=== PATIENT | female | born 1970 | race Two or more races ===

== ENCOUNTER → 2024-07-02 | Outpatient (CLI) | payer MEDICARE, MEDICAID, SELFPAY ==
--- NOTE | 2024-07-02 13:12 | XR_ITS ---
Examination: Left knee 2 views Technique one AP lateral left knee 2 views Exam date and time: July 02, 2024 1502 hours INDICATIONS: Left knee pain beginning 3 weeks ago. FINDINGS: Minimal narrowing medial joint space Early osteoarthritis patellofemoral joint Small knee effusion No fracture IMPRESSION: Mild osteoarthritis
--- NOTE | 2024-07-02 13:12 | XR_ITS ---
EXAMINATION: Ankle, left 3 views . Technique: Ankle AP, oblique, lateral 3 views Date and time of exam: July 02, 2024 1448 hours INDICATIONS: Left ankle pain beginning 3 weeks ago. FINDINGS: Moderate osteopenia Early osteoarthritis tibiotalar joint 4 mm posterior bony calcaneal spur No fracture IMPRESSION: Early osteoarthritis tibiotalar joint
== END | disposition home or self-care (01) ==
PROVIDERS: PCP Nurse Practitioner Family; Referring Provider Nurse Practitioner Family; Visit Provider Nurse Practitioner Family
DX: M19.072 Primary osteoarthritis, left ankle and foot (principal); M17.12 Unilateral primary osteoarthritis, left knee
CPT/HCPCS: 73560; 73610

== ENCOUNTER 2025-02-27 03:54 | Emergency (ER) | payer MEDICARE, MEDICAID, SELFPAY ==
[2025-02-27 03:54] VITALS: BMI 46.6
--- NOTE | 2025-02-27 04:07 | PD.EDURI ---
Upper Respiratory Inf. RME/HPI General Chief Complaint: Flu Like Symptoms Stated Complaint: COUGH Time Seen by Provider: 02/27/25 04:04 Arrival date/time: 02/27/25 03:54 RME / HPI RME / HPI Narrative: This section includes all my notes and documentations, including HPI, PE, and ED course. Fabiano Haynes MD HPI: 54 y/o female with a couple day history of cough and congestion and scratchy throat. No fever. No other complaints. ROS: All negative except as documented in HPI. Physical Exam: General: Alert and oriented. Mild cough noted. Eyes: Conjunctivae and lids clear. ENT: No nasal congestion. Neck: Supple. Heart: RRR. Lungs: No respiratory distress. Good air movement. No rhonchi, wheezing, rales. Abdomen: Soft and nontender. Skin: Warm and dry. Neuro: Alert and oriented X 3. I reviewed all diagnostic test results: Covid/Influenza: Negative. Strep: Negative. At this point, diagnoses include: URI. Treatment here included: Prednisone 40 mg Recommended supportive care. Based on my best medical judgment, made decision no further evaluation or treatment indicated at this time. Patient understands and agrees to the discharge instructions customized and printed, see below. Discharge Instructions from Dr. Haynes: 1. The tests today for COVID and influenza and strep were negative.? 2. We don't have a way to test for all the bugs out there.? But most are virus bugs and we don't have good medications to kill them.? But your immune system will fight off the infection. 3. Tylenol and ibuprofen for fever or pain. 4. Benadryl as needed for severe cough or congestion. 5. Increase oral fluid.? The immune system needs extra when sick. 6. See a private doctor next week if not completely better. 7. Seek immediate medical care with worsening or with any concerns. Fabiano Haynes MD Related Data Home Medications ?Medication ?Instructions ?Recorded ?Confirmed benazepril 20 mg tablet (Lotensin) 40 mg PO DAILY High Blood Pressure 11/23/13 04/21/22 #1 tab esomeprazole magnesium 20 mg 20 mg PO QDAY 10/08/18 04/21/22 capsule,delayed release (Nexium) omeprazole 40 mg capsule,delayed 40 mg PO QDAY 10/08/18 04/21/22 release benazepril 20 mg tablet 1 tab PO QDAY 11/23/18 04/21/22 cyclobenzaprine 10 mg tablet 1 tab PO QDAY 11/23/18 04/21/22 hydrocodone 5 mg-acetaminophen 325 1 tab PO Q6HR PRN Pain 11/23/18 04/21/22 mg tablet cetirizine 10 mg tablet 10 mg PO QDAY 11/26/18 04/21/22 cyclobenzaprine 10 mg tablet 10 mg PO TID 11/26/18 04/21/22 Previous Rx's ?Medication ?Instructions ?Recorded carisoprodol 250 mg tablet 250 mg PO TID PRN muscle pain #20 06/16/19 tabs acetaminophen 500 mg capsule 1,000 mg (2 x 500 mg) PO Q8HR PRN 02/05/20 pain #60 caps cyclobenzaprine 10 mg tablet 10 mg PO TID PRN muscle spasm #30 02/05/20 tabs acetaminophen 300 mg-codeine 30 mg 1 tab PO Q6H PRN pain #10 tabs 08/19/20 tablet naproxen 500 mg tablet (Naprosyn) 500 mg PO BID PRN pain #30 tabs 08/19/20 hydrocodone 5 mg-acetaminophen 325 1 tab PO BID PRN pain #14 tabs 09/11/20 mg tablet ([place]) metoclopramide HCl 10 mg tablet 10 mg PO Q6H PRN nausea and 09/11/20 (Reglan) vomiting #20 tabs naproxen 500 mg tablet (Naprosyn) 500 mg PO BID PRN pain #30 tabs 01/29/21 phenazopyridine 200 mg tablet 200 mg PO TID 6 doses #6 tabs 01/29/21 (Pyridium) albuterol sulfate 90 mcg/actuation 2 puff inhalation Q6H PRN 08/28/21 aerosol inhaler (Ventolin HFA) shortness of breath or wheezing #8.5 grams dextromethorphan HBr 15 mg/5 mL 15 mg (5 mL) PO Q8H #118 mL 08/28/21 oral liquid (Tussin Cough (DM only)) naproxen 500 mg tablet (Naprosyn) 500 mg PO BID PRN pain #20 tabs 09/07/21 tramadol 50 mg tablet 50 mg PO BID PRN pain #14 tabs 09/07/21 ibuprofen 800 mg tablet 800 mg PO TID PRN pain #30 tabs 03/25/22 benzocaine 15 mg-menthol 3.6 mg 1 lyndon mucous membrane Q2H PRN sore 04/21/22 lozenges (Cepacol Sore Throat throat #16 ea (benzocaine-menthol)) benzonatate 200 mg capsule 200 mg PO TID PRN cough #20 caps 07/05/22 Allergies Allergy/AdvReac Type Severity Reaction Status Date / Time topiramate (From Topamax) Allergy Abdominal Verified 02/27/25 03:58 Pain Review of Systems Review of Systems Systems Reviewed: All systems reviewed, normal except as documented Past Medical History Past Medical History CARDIAC: Positive Hypertension RESPIRATORY: Positive Asthma GASTROINTESTINAL: Positive Gastrointestinal Disorders, Gall Bladder Disease, Hemorrhoids, Gastroesophageal Reflux Disease and Obesity REPRODUCTIVE: Positive Previous Pregnancies MUSCULOSKELETAL: Positive Musculoskeletal Disorders, Arthritis and Fibromyalgia PSYCHO/SOCIAL: Positive Anxiety OTHER HISTORY: Positive Chicken Pox Family History FAMILY HISTORY: Positive Family Psychiatric Problems, Family Respiratory Disorders, Family Cardiac Disorders, Family Gastrointestinal Problems and Family Surgery Surgical History SURGICAL: Positive Hysterectomy, Tubal Ligation and Section ED Exam Narrative Physical exam: Refer to HPI Course Quality Measures none Orders Category Date Time Status Bedside COVID-19 Antigen Test NOW Care 02/27/25 04:04 Completed Bedside Influenza A&B Antigen Test NOW Care 02/27/25 04:05 Completed Strep A Rapid Stat Lab 02/27/25 04:20 Completed predniSONE Med 02/27/25 04:15 Discontinued 40 mg PO X1 ONE Vital Signs Vital signs: Vital Signs Temperature 98.2 F 02/27/25 04:09 Pulse Rate 96 02/27/25 04:09 Respiratory Rate 19 02/27/25 04:09 Blood Pressure 159/102 H 02/27/25 04:09 Pulse Oximetry (%) 96 02/27/25 04:09 Oxygen Delivery Method Room Air 02/27/25 04:09 Upper Respiratory Infection MDM Narrative MDM Narrative:: Scribe Attestation: Giuliana Kaye am scribing for and in the presence of Dr. Haynes. Provider Notation: Although this document has been carefully reviewed, there may still be some phonetic and other typographical errors.? These errors are purely grammatical due to imperfections in the software program and should not be construed in any way to? compromise the substance of the patient's medical care during this visit. 54 y/o female with a couple day history of cough and congestion and scratchy throat. No fever. No other complaints Patient data External records reviewed:: [facility] previous records (No recent ED records available for review.) Clinical information provided by:: patient Social determinants that could affect healthcare access:: none Patient has the following chronic illnesses:: Hypertension, Asthma, Gall Bladder Disease, Hemorrhoids, Gastroesophageal Reflux Disease, Obesity, Arthritis, Fibromyalgia, Anxiety How is presenting disease/condition affected by chronic disease/condition?: exacerbated by Evaluation data The following diagnostics were reviewed and interpreted by me:: other (specify) (Covid/Influenza/Strep. A Rapid) Lab and/or radiology exams considered but not ordered:: None Interpretation Summary: I reviewed all diagnostic test results: Covid/Influenza: Negative. Strep: Negative. Medications / Prescriptions Medications or Prescriptions considered but not ordered:: None Medication administrations:: Medication Administration History Discontinued Medications Prednisone (Prednisone 20 Mg Tablet) 40 mg PO X1 ONE Stop: 02/27/25 04:16 Last Admin: 02/27/25 04:22 Dose: 40 mg Documented By: ZOHRA Prednisone 40 mg Consultations Consultation(s) initiated? (list below): No Diagnosis Upper Respiratory Differential Diagnosis: upper respiratory infection, viral infection, bronchitis, influenza, pharyngitis and other (COVID-19) Most likely diagnosis given after review of the tests above:: URI Admission Indicated Admission indicated?: not indicated Explain why admission is indicated or not indicated:: With no condition needing emergent intervention, there was no indication for admission. Admission Request Was there a request for admission?: No Disposition Plan Disposition Plan: Discharge Discharge Attestation Discharge Attestation: The patient and all family members were given an opportunity to ask questions and understood the discharge instructions. Discharge instructions specifically effects, indications for sooner follow up or return to the emergency department, and the expected course of current diagnosis. Patient condition: Stable Discharge Plan Plan Patient Disposition: HOME (Self Care) Prescriptions/Referrals Prescriptions/Med Rec: No Action omeprazole 40 mg capsule,delayed release(DR/EC) 40 mg PO QDAY esomeprazole magnesium [Nexium] 20 mg capsule,delayed release(DR/EC) 20 mg PO QDAY Cepacol Sore Throat (vern-men) 15-3.6 mg lozenge 1 lyndon mucous membrane Q2H PRN (Reason: sore throat) Qty: 16 0RF benazepril [Lotensin] 20 MG tablet 40 mg PO DAILY Qty: 1 carisoprodol 250 mg tablet 250 mg PO TID PRN (Reason: muscle pain) Qty: 20 0RF cyclobenzaprine 10 mg tablet 10 mg PO TID PRN (Reason: muscle spasm) Qty: 30 0RF acetaminophen 500 mg capsule 1,000 mg PO Q8HR PRN (Reason: pain) Qty: 60 0RF naproxen [Naprosyn] 500 mg tablet 500 mg PO BID PRN (Reason: pain) Qty: 30 0RF acetaminophen-codeine 300-30 mg tablet 1 tab PO Q6H PRN (Reason: pain) Qty: 10 0RF naproxen [Naprosyn] 500 mg tablet 500 mg PO BID PRN (Reason: pain) Qty: 30 0RF phenazopyridine [Pyridium] 200 mg tablet 200 mg PO TID Qty: 6 0RF albuterol sulfate [Ventolin HFA] 90 mcg/actuation HFA aerosol inhaler 2 puff inhalation Q6H PRN (Reason: shortness of breath or wheezing) Qty: 8.5 0RF Tussin Cough (DM only) 15 mg/5 mL liquid 15 mg PO Q8H Qty: 118 0RF cyclobenzaprine 10 mg Tablet 10 mg PO TID cetirizine 10 mg Tablet 10 mg PO QDAY cyclobenzaprine 10 mg tablet 1 tab PO QDAY hydrocodone-acetaminophen 5-325 mg tablet 1 tab PO Q6HR PRN (Reason: Pain) benazepril 20 mg tablet 1 tab PO QDAY hydrocodone-acetaminophen [Courtland] 5-325 mg tablet 1 tab PO BID MDD 4 PRN (Reason: pain) Qty: 14 0RF metoclopramide HCl [Reglan] 10 mg tablet 10 mg PO Q6H PRN (Reason: nausea and vomiting) Qty: 20 0RF naproxen [Naprosyn] 500 mg tablet 500 mg PO BID PRN (Reason: pain) Qty: 20 0RF tramadol 50 mg tablet 50 mg PO BID PRN (Reason: pain) Qty: 14 0RF Rx Instructions: Do not take with cyclobenzaprine ibuprofen 800 mg tablet 800 mg PO TID PRN (Reason: pain) Qty: 30 0RF benzonatate 200 mg capsule 200 mg PO TID PRN (Reason: cough) Qty: 20 0RF Problem List Clinical Impression: URI (upper respiratory infection) Patient/Caregiver Discharge Instructions Discharge Activity: activity as tolerated Education Materials: ED URI, Viral, No Abx (Adult) Additional Instructions: Discharge Instructions from Dr. Haynes: 1. The tests today for COVID and influenza and strep were negative.? 2. We don't have a way to test for all the bugs out there.? But most are virus bugs and we don't have good medications to kill them.? But your immune system will fight off the infection. 3. Tylenol and ibuprofen for fever or pain. 4. Benadryl as needed for severe cough or congestion. 5. Increase oral fluid.? The immune system needs extra when sick. 6. See a private doctor next week if not completely better. 7. Seek immediate medical care with worsening or with any concerns. Print Language: Spanish Stand Alone Forms: Mary Ellen Award Info., Patient Portal Info Letter
[2025-02-27 04:09] VITALS: BP 159/102; PULSE 96; RESP 19; TEMP 36.8; O2SAT 96
[2025-02-27 04:50] LABS: Strep A Rapid Negative (Negative)
== END 2025-02-27 04:59 | disposition home or self-care (01) ==
LOC: SERX 04:49
PROVIDERS: Emergency Provider Emergency Medicine; PCP Family Medicine
DX: J06.9 Acute upper respiratory infection, unspecified (principal)
CPT/HCPCS: 87400; 87651; 87811; 99283; J7512

== ENCOUNTER → 2025-03-31 | Outpatient (CLI) | payer MEDICARE, SELFPAY ==
--- NOTE | 2025-03-31 14:37 | XR_ITS ---
Examination: Shoulder bilateral, 6 views Technique: Shoulder AP internal rotation, AP external rotation, Y view each shoulder total 6 views Exam date and time :March 31, 2025 1510 hours INDICATIONS: Bilateral shoulder pain one month. FINDINGS: Moderate osteopenia Bilateral mild narrowing glenohumeral joints Moderate left shoulder calcific tendinitis No fractures or dislocations IMPRESSION: Bilateral mild narrowing glenohumeral joints Moderate left shoulder calcific tendinitis
== END | disposition home or self-care (01) ==
PROVIDERS: PCP Internal Medicine; Referring Provider Internal Medicine; Visit Provider Internal Medicine
DX: M75.32 Calcific tendinitis of left shoulder (principal); M25.812 Other specified joint disorders, left shoulder; M25.811 Other specified joint disorders, right shoulder
CPT/HCPCS: 73030